=== PATIENT | female | born 1960 | race Caucasian/White ===

== ENCOUNTER 2016-09-04 12:42 | Inpatient (IN) | payer OTHER ==
[~2016-09-04] VITALS: Ht 162.6 cm; Wt 52.6 kg
[~2016-09-04 12:42] MED LIST: ABILIFY10 MG PO; CYMBALTA30 MG PO; CYMBALTA60 MG PO; FOLIC ACID1 MG PO; IRON325 MG PO; LIPITOR10 MG PO; MOTRIN600 MG PO; NEURONTIN600 MG PO; SODIUM CHLORIDE1 G1 PO; SYNTHROID50 MCG PO; TRAZODONE HCL150 MG PO
[2016-09-04] MEDS ORDERED: HYDROXYZINE PAM50 MG PO (14:03)
[2016-09-04 14:56] LABS: BASOPHIL COUNT 0.1 K/uL (0-0.1); EOSINOPHIL (%) 4.6 % (0-5); EOSINOPHIL COUNT 0.3 K/uL (0-0.3); IMMATURE GRANULOCYTE (%) 0.3 % (0.0-0.7); INSTRUMENT ABS NEUTROPHIL CT 3.2 K/uL; LYMPHOCYTE COUNT 2.4 K/uL (1.0-2.8); MCH 25.9 PG (29.0-34.0); MCHC 31.2 G/DL (30.0-36.0); MCV 83.1 FL (83-99); MEAN PLAT.VOLUME 9.1 uM^3 (9.5-12.4); MONOCYTE (%) 6.1 % (3-12); MONOCYTE COUNT 0.4 K/uL (0-0.8); NEUTROPHIL (%) 50.7 % (45-76); NEUTROPHIL COUNT 3.2 K/uL (1.8-6.4); PLATELET COUNT 371 K/uL (156-360); RBC DIS.WIDTH-CV 14.4 % (11.8-14.6); RBC DIS.WIDTH-SD 43.4 % (39-53); RED BLOOD COUNT 4.09 M/uL (3.80-5.20); WHITE BLOOD COUNT 6.4 K/uL (4.1-10.2)
[2016-09-04 15:27] LABS: CHLORIDE 98 mEq/L (99-109); POTASSIUM 2.7 mEq/L (3.7-5.4); SODIUM 145 mEq/L (136-147)
[2016-09-04 15:29] LABS: GLUCOSE 91 mg/dL (70-99)
[2016-09-04 15:30] LABS: ANION GAP 15 MEQ/L (2-14)
[2016-09-04 15:32] LABS: SERUM ETHYL ALCOHOL 372 mg/dL
[2016-09-04 15:33] LABS: GFR ESTIMATE (CALCULATED) 55 mL/min/
[2016-09-04 15:34] LABS: UREA NITROGEN (BUN) 13 mg/dL (9-23)
[2016-09-04 18:18] LABS: MAGNESIUM 1.9 mg/dL (1.3-2.7)
[2016-09-04 23:28] VITALS: BP 80/45
[2016-09-05 02:34] VITALS: BP 94/55
[2016-09-05 03:15] VITALS: BP 97/59
[2016-09-05 03:33] LABS: ADD MIUA? YES; BILIRUBIN NEGATIVE; BLOOD LARGE; COLOR YELLOW ((YELLOW)); GLUCOSE (STRIP) NEGATIVE; KETONES 5; LEUKOCYTES NEGATIVE; NITRITE NEGATIVE; PROTEIN (STRIP) 100; SPECIFIC GRAVITY 1.021 (1.000-1.030); UROBILINOGEN 0.2 MG/DL (0.2-1.0)
[2016-09-05 03:54] LABS: BACTERIA NONE SEEN /HPF; EPITHELIAL CELLS NONE SEEN /HPF; MUCUS NONE SEEN /LPF; RED BLOOD CELLS TNTC /HPF (0-5); UCUL ADDED? NO
[2016-09-05 05:48] LABS: HEMATOCRIT 37.6 % (36.0-46.0); MCHC 30.1 G/DL (30.0-36.0); MCV 86.4 FL (83-99); MEAN PLAT.VOLUME 9.6 uM^3 (9.5-12.4); PLATELET COUNT 289 K/uL (156-360); RBC DIS.WIDTH-SD 47.2 % (39-53); RED BLOOD COUNT 4.35 M/uL (3.80-5.20); WHITE BLOOD COUNT 8.8 K/uL (4.1-10.2)
[2016-09-05 05:58] LABS: ANION GAP 22 MEQ/L (2-14); C-REACTIVE PROTEIN 29.2 MG/L (0-10); CHLORIDE 107 MEQ/L (99-109); GFR ESTIMATE (CALCULATED) > 59 mL/min/; SAMPLE HEMOLYSIS CHECK 1; SAMPLE ICTERIC CHECK 0; SAMPLE LIPEMIA CHECK 0; SODIUM 147 MEQ/L (136-147); UREA NITROGEN (BUN) 20 mg/dL (9-23)
[2016-09-05 06:01] LABS: PROTHROMBIN TIME 10.1 (9.2-11.2); PTT 24.6 (25-32)
[2016-09-05 06:10] LABS: GLUCOSE 40 mg/dL (70-99); POTASSIUM 3.5 MEQ/L (3.7-5.4)
[2016-09-05 06:35] LABS: ERTH.SED.RATE 45 MM/HR (0-30)
[2016-09-05 08:10] VITALS: BP 93/50
[2016-09-05 11:40] VITALS: BP 102/56
[2016-09-05] MEDS ORDERED: ABILIFY10 MG PO (13:32)
[2016-09-05] MEDS ORDERED: FOLIC ACID1 MG PO (13:33)
[2016-09-05] MEDS ORDERED: CYMBALTA60 MG PO (13:34)
[2016-09-05] MEDS ORDERED: ACAMPROSATE CA333 MG PO (13:34)
[2016-09-05] MEDS ORDERED: ATARAX,VISTARIL50 MG PO (13:35)
[2016-09-05] MEDS ORDERED: LIPITOR10 MG PO (13:36)
[2016-09-05] MEDS ORDERED: LEVO-T50 MCG PO (13:36)
[2016-09-05] MEDS ORDERED: ADVIL200 MG PO (13:37)
[2016-09-05 14:30] LABS: POINT-OF-CARE METER ID UU14149397
[2016-09-05 15:59] VITALS: BP 96/55
[2016-09-05 20:48] VITALS: BP 111/56
[2016-09-06] VITALS (7 sets, daily range): BP systolic 105–129; BP diastolic 60–72
[2016-09-07 04:14] VITALS: BP 122/65
[2016-09-07 06:04] LABS: ANION GAP 8 MEQ/L (2-14); CHLORIDE 105 MEQ/L (99-109); GFR ESTIMATE (CALCULATED) 55 mL/min/; SAMPLE HEMOLYSIS CHECK 0; SAMPLE ICTERIC CHECK 0; SAMPLE LIPEMIA CHECK 0; UREA NITROGEN (BUN) 30 mg/dL (9-23)
[2016-09-07 06:05] LABS: GLUCOSE 104 mg/dL (70-99); POTASSIUM 4.6 MEQ/L (3.7-5.4); SODIUM 136 MEQ/L (136-147)
[2016-09-07 06:47] LABS: EOSINOPHIL (%) 3.4 % (0-5); EOSINOPHIL COUNT 0.3 K/uL (0-0.3); HEMATOCRIT 28.5 % (36.0-46.0); IMMATURE GRANULOCYTE (%) 0.3 % (0.0-0.7); LYMPHOCYTE COUNT 2.1 K/uL (1.0-2.8); MCH 26.3 PG (29.0-34.0); MCHC 31.9 G/DL (30.0-36.0); MEAN PLAT.VOLUME 9.8 uM^3 (9.5-12.4); MONOCYTE (%) 3.9 % (3-12); MONOCYTE COUNT 0.3 K/uL (0-0.8); PLATELET COUNT 334 K/uL (156-360); RBC DIS.WIDTH-CV 15.9 % (11.8-14.6); RBC DIS.WIDTH-SD 46.9 % (39-53); WHITE BLOOD COUNT 7.7 K/uL (4.1-10.2)
[2016-09-07 06:48] LABS: MCV 82.4 FL (83-99); RED BLOOD COUNT 3.46 M/uL (3.80-5.20)
[2016-09-07 10:38] VITALS: BP 134/71
[2016-09-07 12:01] VITALS: BP 136/84
[2016-09-07 16:50] VITALS: BP 134/76
[2016-09-07 19:34] VITALS: BP 130/77
[2016-09-07 23:27] VITALS: BP 128/72
[2016-09-08 03:36] VITALS: BP 125/89
[2016-09-08 05:58] LABS: GFR ESTIMATE (CALCULATED) > 59 mL/min/
[2016-09-08 08:29] VITALS: BP 140/69
[2016-09-08 12:02] VITALS: BP 146/77
[2016-09-08 15:56] VITALS: BP 132/75
[2016-09-08] MEDS ORDERED: Thiamine,Vitamin B1 PO (19:12)
[2016-09-08] MEDS ORDERED: MAG-AL PLUS SUS30 ML PO (19:12)
[2016-09-08] MEDS ORDERED: K-DUR20 MEQ PO (19:12)
[2016-09-08] MEDS ORDERED: NAPROXEN500 MG PO (19:12)
[2016-09-08] MEDS ORDERED: HYDROCODON-ACE1 EAC7 PO (19:12)
[2016-09-08] MEDS ORDERED: DOXYCYCLINE HY100 M3 PO (19:18)
[2016-09-08] MEDS ORDERED: KEFLEX500 MG PO (19:18)
[2016-09-08 23:29] VITALS: BP 123/84
[2016-09-09 03:53] VITALS: BP 127/78
[2016-09-09 08:00] VITALS: BP 143/68
[2016-09-09 12:18] VITALS: BP 127/74
== END 2016-09-09 15:25 | disposition home or self-care (01) | DRG 746 ==
LOC: EME 12:42 → EDOF 20:48 → 3EAST 20:48
PROVIDERS: Emergency Medicine; Family Medicine; Family Medicine Sports Medicine
PROC: 0U9M00Z Drainage of Vulva with Drainage Device, Open Approach (ICD-10-PCS; principal; 2016-09-05)
DX: N76.4 Abscess of vulva (principal); F33.9 Major depressive disorder, recurrent, unspecified; M86.8X8 Other osteomyelitis, other site; F10.229 Alcohol dependence with intoxication, unspecified; E03.9 Hypothyroidism, unspecified; E78.5 Hyperlipidemia, unspecified
CPT/HCPCS: 71020; 72193; 78315; 80048; 80202; 81003; 82565; 82948; 83605; 83735; 85025; 85027; 85610; 85651; 85730; 86140; 86850; 86900; 86901; 87040; 87070; 87075; 87205; 93005; 94799; 99281; 99285; A9503; G0480; J0692; J0696; J1100; J1650; J1885; J1940; J2405; J3010; J3370; J3411; J3475; J3480; J7030; J7050; J7120; S0028

== ENCOUNTER 2016-11-04 08:09 | Emergency (ER) | payer OTHER ==
[~2016-11-04] VITALS: Ht 162.6 cm; Wt 52.8 kg
[~2016-11-04 08:09] MED LIST changes: +ACAMPROSATE CA333 MG PO; +ADVIL200 MG PO; +ATARAX,VISTARIL50 MG PO; +DOXYCYCLINE HY100 M3 PO; +HYDROCODON-ACE1 EAC7 PO; +HYDROXYZINE PAM50 MG PO; +K-DUR20 MEQ PO; +KEFLEX500 MG PO; +LEVO-T50 MCG PO; +MAG-AL PLUS SUS30 ML PO; +NAPROXEN500 MG PO; +Thiamine,Vitamin B1 PO
[2016-11-04 08:43] LABS: HEMATOCRIT 35.7 % (36.0-46.0); MCH 27.1 PG (29.0-34.0); MCHC 31.9 G/DL (30.0-36.0); MEAN PLAT.VOLUME 9.3 uM^3 (9.5-12.4); PLATELET COUNT 330 K/uL (156-360); RBC DIS.WIDTH-CV 15.1 % (11.8-14.6); RBC DIS.WIDTH-SD 46.8 % (39-53); WHITE BLOOD COUNT 5.4 K/uL (4.1-10.2)
[2016-11-04 08:54] LABS: CHLORIDE 95 mEq/L (99-109); POTASSIUM 3.5 mEq/L (3.7-5.4); SODIUM 138 mEq/L (136-147)
[2016-11-04 08:56] LABS: GLUCOSE 102 mg/dL (70-99)
[2016-11-04 08:58] LABS: ANION GAP 13 MEQ/L (2-14); TOTAL BILIRUBIN 0.2 mg/dL (0.0-1.0)
[2016-11-04 09:00] LABS: ALKALINE PHOSPHATASE 76 IU/L (3-129); GFR ESTIMATE (CALCULATED) 50 mL/min/
[2016-11-04 09:01] LABS: UREA NITROGEN (BUN) 22 mg/dL (9-23)
[2016-11-04 09:03] LABS: LIPASE 62 U/L (1.0-51.0)
[2016-11-04 09:06] LABS: TROP-I INTERPRETATION NEGATIVE; TROPONIN-I < 0.01 ng/mL (0.0-0.30)
[2016-11-04 10:49] LABS: TROP-I INTERPRETATION NEGATIVE; TROPONIN-I < 0.01 ng/mL (0.0-0.30)
[2016-11-04 11:05] VITALS: BP 95/49
== END 2016-11-04 11:07 | disposition home or self-care (01) ==
LOC: EME 08:09
PROVIDERS: Nurse Practitioner Family
DX: R07.9 Chest pain, unspecified (principal); R10.13 Epigastric pain; I10 Essential (primary) hypertension; E78.5 Hyperlipidemia, unspecified; F17.200 Nicotine dependence, unspecified, uncomplicated; F32.9 Major depressive disorder, single episode, unspecified; Z88.0 Allergy status to penicillin
CPT/HCPCS: 71020; 80053; 83690; 84484; 85027; 99281; 99284

== ENCOUNTER 2016-11-10 01:12 | Emergency (ER) | payer OTHER ==
[~2016-11-10] VITALS: Ht 162.6 cm; Wt 53.6 kg
[2016-11-10 01:21] VITALS: BP 89/60
[2016-11-10] MEDS ORDERED: BACTRIM,SEPT1 TABLET PO (19:05)
== END 2016-11-10 02:39 | disposition left against medical advice (07) ==
LOC: EME → EDBD 01:12 → EME 02:39
DX: M25.552 Pain in left hip (principal); R10.32 Left lower quadrant pain; E78.5 Hyperlipidemia, unspecified; E03.9 Hypothyroidism, unspecified; F17.200 Nicotine dependence, unspecified, uncomplicated
CPT/HCPCS: 99281; 99283

== ENCOUNTER 2016-11-10 15:28 | Emergency (ER) | payer OTHER ==
[~2016-11-10] VITALS: Ht 162.6 cm; Wt 54.5 kg
[2016-11-10 15:30] VITALS: BP 92/63
[2016-11-10 17:14] LABS: BASOPHIL COUNT 0.1 K/uL (0-0.1); EOSINOPHIL (%) 2.1 % (0-5); EOSINOPHIL COUNT 0.2 K/uL (0-0.3); HEMATOCRIT 34.8 % (36.0-46.0); IMMATURE GRANULOCYTE (%) 0.3 % (0.0-0.7); INSTRUMENT ABS NEUTROPHIL CT 4.3 K/uL; LYMPHOCYTE COUNT 2.1 K/uL (1.0-2.8); MCHC 32.5 G/DL (30.0-36.0); MCV 83.1 FL (83-99); MEAN PLAT.VOLUME 9.2 uM^3 (9.5-12.4); MONOCYTE (%) 6.1 % (3-12); MONOCYTE COUNT 0.4 K/uL (0-0.8); NEUTROPHIL (%) 60.6 % (45-76); NEUTROPHIL COUNT 4.3 K/uL (1.8-6.4); PLATELET COUNT 335 K/uL (156-360); RBC DIS.WIDTH-CV 15.9 % (11.8-14.6); RBC DIS.WIDTH-SD 47.8 % (39-53); RED BLOOD COUNT 4.19 M/uL (3.80-5.20); WHITE BLOOD COUNT 7.1 K/uL (4.1-10.2)
[2016-11-10 17:21] LABS: CHLORIDE 99 mEq/L (99-109); SODIUM 144 mEq/L (136-147)
[2016-11-10 17:23] LABS: GLUCOSE 93 mg/dL (70-99)
[2016-11-10 17:24] LABS: ANION GAP 16 MEQ/L (2-14)
[2016-11-10 17:27] LABS: GFR ESTIMATE (CALCULATED) 50 mL/min/
[2016-11-10 17:28] LABS: UREA NITROGEN (BUN) 21 mg/dL (9-23)
[2016-11-10] MEDS ORDERED: BACTRIM,SEPT1 TABLET PO (19:05)
== END 2016-11-10 19:16 | disposition home or self-care (01) ==
LOC: EME 15:28
PROVIDERS: Physician Assistant
PROC: 0H9AXZZ Drainage of Inguinal Skin, External Approach (ICD-10-PCS; principal; 2016-11-10)
DX: N76.4 Abscess of vulva (principal); F10.129 Alcohol abuse with intoxication, unspecified; F17.200 Nicotine dependence, unspecified, uncomplicated; Z88.0 Allergy status to penicillin; E78.5 Hyperlipidemia, unspecified
CPT/HCPCS: 72192; 80048; 85025; 99281; 99285; J7040

== ENCOUNTER 2016-11-26 17:41 | Emergency (ER) | payer OTHER ==
[~2016-11-26] VITALS: Ht 162.6 cm; Wt 57.0 kg
[~2016-11-26 17:41] MED LIST changes: +BACTRIM,SEPT1 TABLET PO
[2016-11-26 19:46] LABS: EOSINOPHIL (%) 0.9 % (0-5); HEMATOCRIT 36.8 % (36.0-46.0); IMMATURE GRANULOCYTE (%) 0.3 % (0.0-0.7); INSTRUMENT ABS NEUTROPHIL CT 2.3 K/uL; LYMPHOCYTE COUNT 0.8 K/uL (1.0-2.8); MCH 27.6 PG (29.0-34.0); MCHC 32.9 G/DL (30.0-36.0); MCV 83.8 FL (83-99); MEAN PLAT.VOLUME 8.5 uM^3 (9.5-12.4); MONOCYTE (%) 6.8 % (3-12); MONOCYTE COUNT 0.2 K/uL (0-0.8); NEUTROPHIL (%) 67.2 % (45-76); NEUTROPHIL COUNT 2.3 K/uL (1.8-6.4); PLATELET COUNT 339 K/uL (156-360); RBC DIS.WIDTH-SD 51.9 % (39-53); RED BLOOD COUNT 4.39 M/uL (3.80-5.20); WHITE BLOOD COUNT 3.4 K/uL (4.1-10.2)
[2016-11-26 19:52] LABS: CHLORIDE 103 mEq/L (99-109); POTASSIUM 4.4 mEq/L (3.7-5.4); SODIUM 140 mEq/L (136-147)
[2016-11-26 19:54] LABS: GLUCOSE 111 mg/dL (70-99)
[2016-11-26 19:55] LABS: ANION GAP 11 MEQ/L (2-14)
[2016-11-26 19:56] LABS: TOTAL BILIRUBIN 0.2 mg/dL (0.0-1.0)
[2016-11-26 19:57] LABS: ALKALINE PHOSPHATASE 123 IU/L (3-129); SERUM ETHYL ALCOHOL < 10 mg/dL
[2016-11-26 19:58] LABS: GFR ESTIMATE (CALCULATED) 33 mL/min/
[2016-11-26 19:59] LABS: UREA NITROGEN (BUN) 9 mg/dL (9-23)
[2016-11-26 20:01] LABS: LIPASE 78 U/L (1.0-51.0)
[2016-11-26 20:25] LABS: ADD MIUA? YES; BILIRUBIN NEGATIVE; BLOOD LARGE; COLOR YELLOW ((YELLOW)); GLUCOSE (STRIP) NEGATIVE; KETONES 20; LEUKOCYTES NEGATIVE; NITRITE NEGATIVE; PROTEIN (STRIP) >=500; SPECIFIC GRAVITY 1.007 (1.000-1.030); UROBILINOGEN 0.2 MG/DL (0.2-1.0)
[2016-11-26 20:55] LABS: BACTERIA 1+ /HPF; EPITHELIAL CELLS 1+ /HPF; MUCUS NONE SEEN /LPF; RED BLOOD CELLS TNTC /HPF (0-5); UCUL ADDED? NO; WHITE BLOOD CELLS 0-5 /HPF (0-5)
[2016-11-26] MEDS ORDERED: LORAZEPAM1 MG PO (22:36)
[2016-11-26 23:09] VITALS: BP 98/70
== END 2016-11-26 23:11 | disposition home or self-care (01) ==
LOC: EME 17:41
PROVIDERS: Emergency Medicine
DX: F10.239 Alcohol dependence with withdrawal, unspecified (principal); E78.5 Hyperlipidemia, unspecified; F32.9 Major depressive disorder, single episode, unspecified; R56.9 Unspecified convulsions; Y90.0 Blood alcohol level of less than 20 mg/100 ml; Z88.0 Allergy status to penicillin; F17.200 Nicotine dependence, unspecified, uncomplicated
CPT/HCPCS: 80053; 81003; 82803; 83605; 83690; 85025; 93005; 99281; 99285; G0480; J2060; J3411; J7030; J7050

== ENCOUNTER 2016-12-05 00:24 | Inpatient (IN) | payer OTHER ==
[~2016-12-05] VITALS: Ht 162.6 cm; Wt 54.5 kg
[~2016-12-05 00:24] MED LIST changes: +LORAZEPAM1 MG PO
[2016-12-05 00:48] LABS: EOSINOPHIL (%) 0.1 % (0-5); HEMATOCRIT 40.9 % (36.0-46.0); IMMATURE GRANULOCYTE (%) 0.4 % (0.0-0.7); INSTRUMENT ABS NEUTROPHIL CT 5.3 K/uL; LYMPHOCYTE COUNT 1.3 K/uL (1.0-2.8); MCH 26.9 PG (29.0-34.0); MCHC 32.3 G/DL (30.0-36.0); MCV 83.5 FL (83-99); MEAN PLAT.VOLUME 9.1 uM^3 (9.5-12.4); MONOCYTE (%) 3.9 % (3-12); MONOCYTE COUNT 0.3 K/uL (0-0.8); NEUTROPHIL (%) 76.5 % (45-76); NEUTROPHIL COUNT 5.3 K/uL (1.8-6.4); PLATELET COUNT 328 K/uL (156-360); RBC DIS.WIDTH-SD 52.2 % (39-53); WHITE BLOOD COUNT 6.9 K/uL (4.1-10.2)
[2016-12-05 00:59] LABS: PROTHROMBIN TIME 10.4 (9.2-11.2)
[2016-12-05 01:04] LABS: AMYLASE 89 IU/L (1-118); CHLORIDE 97 mEq/L (99-109); POTASSIUM 4.3 mEq/L (3.7-5.4); SODIUM 135 mEq/L (136-147)
[2016-12-05 01:06] LABS: GLUCOSE 83 mg/dL (70-99)
[2016-12-05 01:07] LABS: ANION GAP 24 MEQ/L (2-14)
[2016-12-05 01:09] LABS: SERUM ETHYL ALCOHOL < 10 mg/dL
[2016-12-05 01:10] LABS: GFR ESTIMATE (CALCULATED) 25 mL/min/
[2016-12-05 01:11] LABS: UREA NITROGEN (BUN) 21 mg/dL (9-23)
[2016-12-05 01:13] LABS: LIPASE 122 U/L (1.0-51.0)
[2016-12-05 01:19] LABS: QUANTITATIVE HCG < 4.0 MIU/ML
[2016-12-05 07:41] LABS: ADD MIUA? YES; BILIRUBIN NEGATIVE; BLOOD LARGE; COLOR YELLOW ((YELLOW)); GLUCOSE (STRIP) NEGATIVE; KETONES 80; LEUKOCYTES NEGATIVE; NITRITE NEGATIVE; PROTEIN (STRIP) >=500; SPECIFIC GRAVITY 1.015 (1.000-1.030); UROBILINOGEN 0.2 MG/DL (0.2-1.0)
[2016-12-05 07:55] LABS: AMPHETAMINE NEGATIVE (500 ng/mL); BARBITURATES NEGATIVE (200 ng/mL); BENZODIAZEPINES NEGATIVE (150 ng/mL); COCAINE NEGATIVE (150 ng/mL); INTERNAL CONTROLS VALID? YES; METHADONE NEGATIVE (200 ng/mL); METHAMPHETAMINE NEGATIVE (500 ng/mL); OPIATES (MORPHINE) NEGATIVE (100 ng/mL); OXYCODONE NEGATIVE (100 ng/mL); PHENCYCLIDINE NEGATIVE (25 ng/mL); PROPOXYPHENE NEGATIVE (300 ng/mL); THC CANNABINOIDS NEGATIVE (50 ng/mL); TRICYCLIC ANTIDEPRESSANTS NEGATIVE (300 ng/mL)
[2016-12-05 08:02] LABS: BACTERIA RARE /HPF; EPITHELIAL CELLS RARE /HPF; MUCUS TRACE /LPF; RED BLOOD CELLS TNTC /HPF (0-5); UCUL ADDED? NO; WHITE BLOOD CELLS 0-5 /HPF (0-5)
[2016-12-05 08:03] LABS: CREATINE KINASE 957 IU/L (1-294)
[2016-12-05 09:37] LABS: MAGNESIUM 2.1 mg/dl (1.3-2.7); SAMPLE HEMOLYSIS CHECK 1; SAMPLE ICTERIC CHECK 0; SAMPLE LIPEMIA CHECK 0
[2016-12-05] MEDS ORDERED: FERROUS SULFAT325 MG PO (13:50)
[2016-12-05] MEDS ORDERED: LEVO-T25 MCG PO (13:51)
[2016-12-05] MEDS ORDERED: B-1100 MG PO (13:54)
[2016-12-05 15:52] VITALS: BP 98/56
[2016-12-05 23:23] VITALS: BP 93/63
[2016-12-06 07:10] LABS: ANION GAP 8 MEQ/L (2-14); CHLORIDE 106 MEQ/L (99-109); GLUCOSE 93 mg/dL (70-99); SAMPLE HEMOLYSIS CHECK 0; SAMPLE ICTERIC CHECK 0; SAMPLE LIPEMIA CHECK 0; SODIUM 139 MEQ/L (136-147); UREA NITROGEN (BUN) 14 mg/dL (9-23)
[2016-12-06 07:12] LABS: GFR ESTIMATE (CALCULATED) > 59 mL/min/; POTASSIUM 3.3 MEQ/L (3.7-5.4)
[2016-12-06 08:20] VITALS: BP 101/65
[2016-12-06 08:29] LABS: EOSINOPHIL (%) 2.2 % (0-5); EOSINOPHIL COUNT 0.1 K/uL (0-0.3); HEMATOCRIT 28.7 % (36.0-46.0); IMMATURE GRANULOCYTE (%) 0.2 % (0.0-0.7); INSTRUMENT ABS NEUTROPHIL CT 2.7 K/uL; MCH 27.9 PG (29.0-34.0); MCHC 33.4 G/DL (30.0-36.0); MCV 83.4 FL (83-99); MEAN PLAT.VOLUME 9.4 uM^3 (9.5-12.4); MONOCYTE COUNT 0.2 K/uL (0-0.8); NEUTROPHIL (%) 66.8 % (45-76); NEUTROPHIL COUNT 2.7 K/uL (1.8-6.4); PLATELET COUNT 246 K/uL (156-360); RBC DIS.WIDTH-CV 17.4 % (11.8-14.6); RBC DIS.WIDTH-SD 52.6 % (39-53)
[2016-12-06 08:58] LABS: RED BLOOD COUNT 3.44 M/uL (3.80-5.20)
[2016-12-06 16:15] VITALS: BP 103/58
[2016-12-06 23:29] VITALS: BP 98/66
[2016-12-07 07:25] LABS: ANION GAP 7 MEQ/L (2-14); CHLORIDE 107 MEQ/L (99-109); CREATINE KINASE 267 IU/L (1-294); GFR ESTIMATE (CALCULATED) > 59 mL/min/; GLUCOSE 85 mg/dL (70-99); POTASSIUM 3.8 MEQ/L (3.7-5.4); SAMPLE HEMOLYSIS CHECK 0; SAMPLE ICTERIC CHECK 0; SAMPLE LIPEMIA CHECK 0; SODIUM 142 MEQ/L (136-147); UREA NITROGEN (BUN) 8 mg/dL (9-23)
[2016-12-07 07:27] VITALS: BP 104/67
[2016-12-07 11:38] VITALS: BP 97/59
[2016-12-07 15:56] VITALS: BP 109/69
[2016-12-07 19:33] VITALS: BP 116/77
[2016-12-08] VITALS (7 sets, daily range): BP systolic 104–119; BP diastolic 58–79
[2016-12-08 06:08] LABS: EOSINOPHIL (%) 4.1 % (0-5); EOSINOPHIL COUNT 0.2 K/uL (0-0.3); HEMATOCRIT 28.3 % (36.0-46.0); IMMATURE GRANULOCYTE (%) 0.5 % (0.0-0.7); INSTRUMENT ABS NEUTROPHIL CT 2.3 K/uL; LYMPHOCYTE COUNT 1.1 K/uL (1.0-2.8); MCH 27.8 PG (29.0-34.0); MCHC 32.9 G/DL (30.0-36.0); MCV 84.7 FL (83-99); MEAN PLAT.VOLUME 10.5 uM^3 (9.5-12.4); MONOCYTE (%) 8.4 % (3-12); MONOCYTE COUNT 0.3 K/uL (0-0.8); NEUTROPHIL (%) 57.9 % (45-76); NEUTROPHIL COUNT 2.3 K/uL (1.8-6.4); PLATELET COUNT 237 K/uL (156-360); RBC DIS.WIDTH-CV 17.4 % (11.8-14.6); RBC DIS.WIDTH-SD 54.3 % (39-53); RED BLOOD COUNT 3.34 M/uL (3.80-5.20); WHITE BLOOD COUNT 3.9 K/uL (4.1-10.2)
[2016-12-08 06:51] LABS: ALKALINE PHOSPHATASE 61 IU/L (3-129); ANION GAP 10 MEQ/L (2-14); CHLORIDE 102 MEQ/L (99-109); GFR ESTIMATE (CALCULATED) > 59 mL/min/; GLUCOSE 81 mg/dL (70-99); LIPASE 92 U/L (1.0-51.0); POTASSIUM 4.2 MEQ/L (3.7-5.4); SAMPLE HEMOLYSIS CHECK 0; SAMPLE ICTERIC CHECK 0; SAMPLE LIPEMIA CHECK 0; SODIUM 138 MEQ/L (136-147); TOTAL BILIRUBIN 0.3 MG/DL (0.0-1.0); UREA NITROGEN (BUN) 13 mg/dL (9-23)
[2016-12-09 04:07] VITALS: BP 100/60
[2016-12-09 07:07] LABS: EOSINOPHIL (%) 2.3 % (0-5); EOSINOPHIL COUNT 0.1 K/uL (0-0.3); HEMATOCRIT 28.9 % (36.0-46.0); IMMATURE GRANULOCYTE (%) 0.5 % (0.0-0.7); INSTRUMENT ABS NEUTROPHIL CT 2.3 K/uL; LYMPHOCYTE COUNT 1.1 K/uL (1.0-2.8); MCH 26.5 PG (29.0-34.0); MCHC 31.8 G/DL (30.0-36.0); MCV 83.3 FL (83-99); MEAN PLAT.VOLUME 10.3 uM^3 (9.5-12.4); MONOCYTE (%) 9.8 % (3-12); MONOCYTE COUNT 0.4 K/uL (0-0.8); NEUTROPHIL (%) 59.3 % (45-76); NEUTROPHIL COUNT 2.3 K/uL (1.8-6.4); PLATELET COUNT 285 K/uL (156-360); RBC DIS.WIDTH-CV 17.1 % (11.8-14.6); RBC DIS.WIDTH-SD 52.1 % (39-53); RED BLOOD COUNT 3.47 M/uL (3.80-5.20); WHITE BLOOD COUNT 3.9 K/uL (4.1-10.2)
[2016-12-09 07:26] VITALS: BP 103/70
[2016-12-09 07:36] LABS: ANION GAP 9 MEQ/L (2-14); CHLORIDE 99 MEQ/L (99-109); GFR ESTIMATE (CALCULATED) > 59 mL/min/; GLUCOSE 94 mg/dL (70-99); POTASSIUM 4.2 MEQ/L (3.7-5.4); SAMPLE HEMOLYSIS CHECK 0; SAMPLE ICTERIC CHECK 0; SAMPLE LIPEMIA CHECK 0; SODIUM 136 MEQ/L (136-147); UREA NITROGEN (BUN) 17 mg/dL (9-23)
[2016-12-09 16:01] VITALS: BP 103/70
[2016-12-09] MEDS ORDERED: Chronulac,Cephulac,E PO (16:02)
[2016-12-09] MEDS ORDERED: MAG-AL PLUS SUS30 ML PO (16:02)
[2016-12-09] MEDS ORDERED: SYNTHROID50 MCG PO (16:03)
[2016-12-09] MEDS ORDERED: TORADOL10 MG PO (16:04)
== END 2016-12-09 17:59 | DRG 897 ==
LOC: TRA 00:24 → 3EAST 08:26 → EDOF 08:26 → 3EAST 15:28
PROVIDERS: Emergency Medicine; Family Medicine Sports Medicine
PROC: 0HQ0XZZ Repair Scalp Skin, External Approach (ICD-10-PCS; principal; 2016-12-05)
DX: F10.239 Alcohol dependence with withdrawal, unspecified (principal); R56.9 Unspecified convulsions; N17.9 Acute kidney failure, unspecified; E86.0 Dehydration; M62.82 Rhabdomyolysis; S01.01XA Laceration without foreign body of scalp, initial encounter; E78.5 Hyperlipidemia, unspecified; E03.9 Hypothyroidism, unspecified; F32.9 Major depressive disorder, single episode, unspecified; K21.9 Gastro-esophageal reflux disease without esophagitis; N18.9 Chronic kidney disease, unspecified; W10.9XXA Fall (on) (from) unspecified stairs and steps, initial encounter; Z59.0 Homelessness
CPT/HCPCS: 70450; 71250; 71260; 72125; 72128; 72129; 72131; 72132; 73610; 74176; 74177; 80048; 80053; 81003; 82140; 82150; 82550; 83690; 83735; 84443; 84702; 85025; 85610; 85730; 86900; 86901; 99281; 99285; C1753; G0480; J2405; J3010; J3411; J7030; J7120

== ENCOUNTER 2016-12-09 17:04 | Inpatient (IN) | payer OTHER ==
[~2016-12-09] VITALS: Ht 162.6 cm; Wt 53.5 kg
[~2016-12-09 17:04] MED LIST changes: +B-1100 MG PO; +Chronulac,Cephulac,E PO; +FERROUS SULFAT325 MG PO; +LEVO-T25 MCG PO; +TORADOL10 MG PO
[2016-12-09 18:23] VITALS: BP 100/63
[2016-12-10 07:21] VITALS: BP 110/73
[2016-12-10 15:15] VITALS: BP 115/70
[2016-12-11 07:27] VITALS: BP 85/59
[2016-12-11 11:38] VITALS: BP 100/54
[2016-12-11 16:32] VITALS: BP 106/52
[2016-12-12 07:59] VITALS: BP 101/55
[2016-12-12 12:34] LABS: EOSINOPHIL (%) 3.1 % (0-5); EOSINOPHIL COUNT 0.2 K/uL (0-0.3); HEMATOCRIT 33.3 % (36.0-46.0); IMMATURE GRANULOCYTE (%) 0.8 % (0.0-0.7); INSTRUMENT ABS NEUTROPHIL CT 2.3 K/uL; LYMPHOCYTE COUNT 1.8 K/uL (1.0-2.8); MCH 27.8 PG (29.0-34.0); MCHC 31.8 G/DL (30.0-36.0); MCV 87.4 FL (83-99); MEAN PLAT.VOLUME 10.4 uM^3 (9.5-12.4); MONOCYTE (%) 16.2 % (3-12); MONOCYTE COUNT 0.8 K/uL (0-0.8); NEUTROPHIL (%) 44.1 % (45-76); NEUTROPHIL COUNT 2.3 K/uL (1.8-6.4); PLATELET COUNT 316 K/uL (156-360); RBC DIS.WIDTH-CV 17.2 % (11.8-14.6); RBC DIS.WIDTH-SD 55.4 % (39-53); RED BLOOD COUNT 3.81 M/uL (3.80-5.20); WHITE BLOOD COUNT 5.2 K/uL (4.1-10.2)
[2016-12-12 12:39] LABS: ANION GAP 10 MEQ/L (2-14); CHLORIDE 99 MEQ/L (99-109); SAMPLE HEMOLYSIS CHECK 0; SAMPLE ICTERIC CHECK 0; SAMPLE LIPEMIA CHECK 0; SODIUM 138 MEQ/L (136-147)
[2016-12-12 13:29] LABS: GFR ESTIMATE (CALCULATED) > 59 mL/min/; GLUCOSE 103 mg/dL (70-99); UREA NITROGEN (BUN) 21 mg/dL (9-23)
[2016-12-12 15:53] VITALS: BP 83/46
[2016-12-12 20:42] VITALS: BP 102/53
[2016-12-13 07:44] VITALS: BP 107/52
[2016-12-13 15:26] VITALS: BP 93/51
[2016-12-14 07:51] VITALS: BP 87/50
[2016-12-14 10:28] VITALS: BP 84/51
[2016-12-14 15:41] VITALS: BP 94/54
[2016-12-15 07:06] VITALS: BP 104/54
[2016-12-15] MEDS ORDERED: ACAMPROSATE CA333 MG PO (09:22)
[2016-12-15] MEDS ORDERED: SYNTHROID50 MCG PO (09:22)
[2016-12-15] MEDS ORDERED: CYMBALTA60 MG PO (09:22)
== END 2016-12-15 12:50 | disposition other institution (70) | DRG 885 ==
LOC: 1WEST 17:04
PROVIDERS: Internal Medicine
PROC: HZ2ZZZZ Detoxification Services for Substance Abuse Treatment (ICD-10-PCS; principal; 2016-12-09)
DX: F33.1 Major depressive disorder, recurrent, moderate (principal); F10.230 Alcohol dependence with withdrawal, uncomplicated; E87.1 Hypo-osmolality and hyponatremia; D64.9 Anemia, unspecified; E03.9 Hypothyroidism, unspecified; E78.5 Hyperlipidemia, unspecified; F41.9 Anxiety disorder, unspecified; S01.01XD Laceration without foreign body of scalp, subsequent encounter; W10.8XXD Fall (on) (from) other stairs and steps, subsequent encounter; Y92.038 Other place in apartment as the place of occurrence of the external cause; G47.10 Hypersomnia, unspecified; G47.00 Insomnia, unspecified; Z59.0 Homelessness; Z56.0 Unemployment, unspecified; Z88.0 Allergy status to penicillin
CPT/HCPCS: 80048; 85025; Q0177